=== PATIENT | male | born 1955 | race Caucasian/White ===

== ENCOUNTER 2018-04-29 01:27 | Inpatient (IN) | payer MEDICARE, MEDICAID ==
[2018-04-29] VITALS (14 sets, daily range): BP systolic 104–158; BP diastolic 72–96
[~2018-04-29] VITALS: Ht 167.6 cm; Wt 49.0 kg
[~2018-04-29 01:27] MED LIST: AMLO2.5T45 MT; DORZ10DR9 EACHEYE; LATA2.5D2 EACHEYE; METF500T6 MT; PILO2O EACHEYE; SIMV20TA6 PO
[2018-04-29] MEDS ORDERED: SODIUM CHLORIDE 0.9% 1,000 ML IV ONE (02:02)
[2018-04-29 02:25] LABS: EOSINOPHILS % 0.1 % (0.0-5.0); LYMPHOCYTES % 14.5 % (20.0-50.0); MEAN CORPUSCULAR HEMOGLOBIN 30.8 pg (28.0-32.0)
[2018-04-29 02:32] LABS: CHLORIDE 74 mEq/L (98-107)
[2018-04-29 02:35] LABS: ETHANOL BLOOD < 10 mg/dL
[2018-04-29 02:37] LABS: PROTHROMBIN TIME 10.8 sec (9.4-11.6)
[2018-04-29 02:42] LABS: BASOPHILS % 0.2 % (0.0-2.0); HEMATOCRIT. 37.3 % (42.0-52.0); MEAN PLATELET VOLUME 6.9 fl (7.4-10.4); MONOCYTES % 11.8 % (2.0-8.0); NEUTROPHILS % 73.4 % (40.0-76.0); PLATELET 238 x1000/uL (130-400); RED BLOOD CELL COUNT 4.55 mill/uL (4.7-6.1); RED CELL DISTRIBUTION WIDTH 14.9 % (11.6-14.6)
[2018-04-29] MEDS ORDERED: POTASSIUM CHLORIDE 20MEQ TABLET SR PO SCH (03:00)
[2018-04-29 03:31] LABS: CLARITY URINE CLEAR (CLEAR); COLOR URINE YELLOW (YELLOW); KETONES URINE 1+ (NEGATIVE); LEUKOCYTE ESTERASE URINE NEGATIVE (NEGATIVE); NITRITE URINE NEGATIVE (NEGATIVE); OCCULT BLOOD URINE TRACE (NEGATIVE); PH URINE 6.5 (4.5-8.0); PROTEIN URINE 2+ (NEGATIVE); SPECIFIC GRAVITY URINE 1.014 (1.005-1.030); UROBILINOGEN URINE 0.2 E.U./dL (0.2-1.0)
[2018-04-29] MEDS ORDERED: XALAO LEFTEYE (07:37)
[2018-04-29] MEDS ORDERED: DORZ10DR9 LEFTEYE (07:37)
[2018-04-29] MEDS ORDERED: LISI2.5T47 PO (07:37)
[2018-04-29] MEDS ORDERED: CEPH500T PO (07:37)
[2018-04-29] MEDS ORDERED: ONDA4TAB8 PO (07:37)
[2018-04-29] MEDS ORDERED: DEXTROSE 50% WATER 50ML SYRINGE IV PRN (08:45)
[2018-04-29] MEDS ORDERED: neomycin RIGHTEYE (08:50)
[2018-04-29] MEDS ORDERED: PILOCARPINE HCL 2% OPHTH DROPS 15ML EACHEYE SCH (09:00)
[2018-04-29] MEDS: PILOCARPINE HCL 2% OPHTH DROPS 15ML LEFTEYE SCH ×4 (09:00→22:11)
[2018-04-29] MEDS ORDERED: DORZOLAM/TIMOLOL 2.23/0.68% OPHTH DROPS 10ML EACHEYE SCH (09:00)
[2018-04-29] MEDS ORDERED: AMLODIPINE 5MG TABLET PO SCH (09:00)
[2018-04-29] MEDS: BLOOD SUGAR DIAGNOSTIC STRIP TEST SCH ×4 (09:00→21:00)
[2018-04-29] MEDS ORDERED: DORZOLAM/TIMOLOL 2.23/0.68% OPHTH DROPS 10ML LEFTEYE SCH (09:00)
[2018-04-29] MEDS: SODIUM CHLORIDE 0.9% 1,000 ML IV SCH ×2 (09:08→19:40)
[2018-04-29] MEDS ORDERED: NEO/3.5O RIGHTEYE (09:11)
[2018-04-29] MEDS ORDERED: [UNRECOGNIZED DRUG - OTHER] RIGHTEYE SCH (09:15)
[2018-04-29] MEDS ORDERED: NEO/POLYMYX B SULF/DEXAMETH OPHTH OINT 3.5GM RIGHTEYE SCH (09:15)
[2018-04-29] MEDS ORDERED: NEOMY SULF/BACITRAC ZN/POLY/HC 1 APP TUBE RIGHTEYE SCH (10:00)
[2018-04-29] MEDS: INSULIN LISPRO 100 UNITS/ML SUBCUT SCH ×4 (10:05→21:00)
[2018-04-29] MEDS: ENOXAPARIN 40MG/0.4ML SYR SUBCUT SCH (10:06)
[2018-04-29] MEDS ORDERED: MEDICATION NOT ON FORMULARY EA (Cephalexin Monohydrate (Cephalexin) 500 MG) PO SCH (10:30)
[2018-04-29] MEDS ORDERED: NEO/POLYMYX B SULF/DEXAMETH OPHTH OINT 3.5GM BOTHEYE SCH (10:30)
[2018-04-29] MEDS: DORZOLAM/TIMOLOL 2.23/0.68% OPHTH DROPS 10ML LEFTEYE SCH ×2 (10:43→17:32)
[2018-04-29] MEDS: NEO/POLYMYX B SULF/DEXAMETH OPHTH OINT 3.5GM RIGHTEYE SCH ×2 (10:43→17:32)
[2018-04-29] MEDS: INSULIN GLARGINE UD 100 UNITS/ML SYR SUBCUT SCH (10:45)
[2018-04-29] MEDS: CEPHALEXIN 500MG CAPSULE PO SCH ×2 (10:47→17:32)
[2018-04-29] MEDS ORDERED: ONDANSETRON 4MG ODT PO PRN (13:30)
[2018-04-29] MEDS ORDERED: AMLODIPINE 2.5MG TABLET PO NR (15:45)
[2018-04-29 15:59] LABS: CREATINE KINASE 87 IU/L (39-308)
[2018-04-29 16:02] LABS: CREATINE KINASE MB FRACTION 1.7 ng/mL (0.5-3.6)
[2018-04-29 16:17] LABS: CHLORIDE 90 mEq/L (98-107)
[2018-04-29] MEDS ORDERED: LATANOPROST 0.005% OPHTH DROPS 2.5ML EACHEYE SCH (21:00)
[2018-04-29] MEDS ORDERED: LATANOPROST 0.005% OPHTH DROPS 2.5ML LEFTEYE SCH (21:00)
[2018-04-29] MEDS: POTASSIUM CHLORIDE 20MEQ TABLET SR PO SCH ×2 (22:11→23:37)
[2018-04-29] MEDS: LATANOPROST 0.005% OPHTH DROPS 2.5ML LEFTEYE SCH (22:11)
[2018-04-29 23:43] LABS: CREATINE KINASE 76 IU/L (39-308)
[2018-04-29 23:44] LABS: CREATINE KINASE MB FRACTION 1.5 ng/mL (0.5-3.6)
[2018-04-30] VITALS (10 sets, daily range): BP systolic 112–159; BP diastolic 74–98
[2018-04-30] MEDS: SODIUM CHLORIDE 0.9% 1,000 ML IV SCH ×2 (04:02→14:06)
[2018-04-30] MEDS: BLOOD SUGAR DIAGNOSTIC STRIP TEST SCH ×4 (06:39→21:00)
[2018-04-30 06:42] LABS: CHLORIDE 91 mEq/L (98-107)
[2018-04-30] MEDS ORDERED: POTASSIUM CHLORIDE 20MEQ TABLET SR PO NR (07:45)
[2018-04-30] MEDS: CEPHALEXIN 500MG CAPSULE PO SCH ×2 (08:31→17:39)
[2018-04-30] MEDS: INSULIN LISPRO 100 UNITS/ML SUBCUT SCH ×4 (08:31→22:15)
[2018-04-30] MEDS: AMLODIPINE 2.5MG TABLET PO SCH ×2 (08:32→22:11)
[2018-04-30] MEDS: DORZOLAM/TIMOLOL 2.23/0.68% OPHTH DROPS 10ML LEFTEYE SCH ×2 (08:33→17:39)
[2018-04-30] MEDS: PILOCARPINE HCL 2% OPHTH DROPS 15ML LEFTEYE SCH ×4 (08:33→21:00)
[2018-04-30] MEDS: NEO/POLYMYX B SULF/DEXAMETH OPHTH OINT 3.5GM RIGHTEYE SCH ×2 (08:33→17:39)
[2018-04-30] MEDS: ENOXAPARIN 40MG/0.4ML SYR SUBCUT SCH (08:34)
[2018-04-30 08:56] LABS: BASOPHILS % 0.4 % (0.0-2.0); EOSINOPHILS % 0.1 % (0.0-5.0); LYMPHOCYTES % 17.1 % (20.0-50.0); MEAN CORPUSCULAR HEMOGLOBIN 30.4 pg (28.0-32.0); MEAN CORPUSCULAR VOLUME 83.9 fL (80.0-94.0); MEAN PLATELET VOLUME 6.8 fl (7.4-10.4); MONOCYTES % 12.6 % (2.0-8.0); NEUTROPHILS % 69.8 % (40.0-76.0); PLATELET 215 x1000/uL (130-400); RED BLOOD CELL COUNT 4.29 mill/uL (4.7-6.1); RED CELL DISTRIBUTION WIDTH 15.3 % (11.6-14.6)
[2018-04-30] MEDS ORDERED: AMLODIPINE 2.5MG TABLET PO SCH (09:00)
[2018-04-30] MEDS: POTASSIUM CHLORIDE 20MEQ TABLET SR PO SCH (09:30)
[2018-04-30] MEDS: INSULIN GLARGINE UD 100 UNITS/ML SYR SUBCUT SCH (10:52)
[2018-04-30] MEDS: LATANOPROST 0.005% OPHTH DROPS 2.5ML LEFTEYE SCH (22:11)
[2018-05-01] VITALS (12 sets, daily range): BP systolic 122–178; BP diastolic 61–114
[2018-05-01] MEDS: SODIUM CHLORIDE 0.9% 1,000 ML IV SCH ×2 (00:01→09:50)
[2018-05-01 06:43] LABS: CHLORIDE 87 mEq/L (98-107)
[2018-05-01] MEDS: BLOOD SUGAR DIAGNOSTIC STRIP TEST SCH ×4 (07:16→21:00)
[2018-05-01 07:34] LABS: PHOSPHORUS 2.4 mg/dL (2.5-4.9)
[2018-05-01] MEDS ORDERED: KCL 20MEQ/100ML PREMIX 100 ML IV NR (08:00)
[2018-05-01 08:06] LABS: BASOPHILS % 0.2 % (0.0-2.0); EOSINOPHILS % 0.6 % (0.0-5.0); HEMATOCRIT. 37.2 % (42.0-52.0); HEMOGLOBIN. 13.5 g/dL (14.0-18.0); LYMPHOCYTES % 25.7 % (20.0-50.0); MEAN CORPUSCULAR HEMOGLOBIN 30.4 pg (28.0-32.0); MEAN CORPUSCULAR VOLUME 83.7 fL (80.0-94.0); MEAN PLATELET VOLUME 6.7 fl (7.4-10.4); MONOCYTES % 10.5 % (2.0-8.0); PLATELET 217 x1000/uL (130-400); RED BLOOD CELL COUNT 4.45 mill/uL (4.7-6.1)
[2018-05-01] MEDS: ENOXAPARIN 40MG/0.4ML SYR SUBCUT SCH (09:00)
[2018-05-01] MEDS: PILOCARPINE HCL 2% OPHTH DROPS 15ML LEFTEYE SCH ×4 (09:00→21:30)
[2018-05-01] MEDS: AMLODIPINE 2.5MG TABLET PO SCH ×2 (09:21→21:30)
[2018-05-01] MEDS: POTASSIUM CHLORIDE 20MEQ TABLET SR PO SCH (09:21)
[2018-05-01] MEDS: CEPHALEXIN 500MG CAPSULE PO SCH ×2 (09:21→18:38)
[2018-05-01] MEDS: INSULIN LISPRO 100 UNITS/ML SUBCUT SCH ×4 (09:24→21:32)
[2018-05-01] MEDS: NEO/POLYMYX B SULF/DEXAMETH OPHTH OINT 3.5GM RIGHTEYE SCH ×2 (09:26→18:40)
[2018-05-01] MEDS: DORZOLAM/TIMOLOL 2.23/0.68% OPHTH DROPS 10ML LEFTEYE SCH ×2 (09:26→18:39)
[2018-05-01] MEDS: INSULIN GLARGINE UD 100 UNITS/ML SYR SUBCUT SCH (09:28)
[2018-05-01] MEDS: FOLIC ACID/VITAMIN B COMP W-C TABLET PO SCH (11:15)
[2018-05-01] MEDS: TAMSULOSIN HCL 0.4MG SR CAPSULE PO SCH (11:16)
[2018-05-01] MEDS ORDERED: MAGNESIUM 2 G PREMIX 50 ML IV NR (11:30)
[2018-05-01] MEDS: DEXAMETHASONE 4MG/ML 1ML VIAL IV SCH ×3 (12:47→23:47)
[2018-05-01] MEDS: MAGNESIUM OXIDE 400MG TABLET PO SCH (18:38)
[2018-05-01] MEDS: LATANOPROST 0.005% OPHTH DROPS 2.5ML LEFTEYE SCH (21:30)
[2018-05-02] VITALS (15 sets, daily range): BP systolic 62–169; BP diastolic 46–105
[2018-05-02] MEDS: DEXAMETHASONE 4MG/ML 1ML VIAL IV SCH ×4 (05:37→23:54)
[2018-05-02 06:49] LABS: CHLORIDE 89 mEq/L (98-107)
[2018-05-02] MEDS: BLOOD SUGAR DIAGNOSTIC STRIP TEST SCH ×4 (06:50→21:00)
[2018-05-02] MEDS: INSULIN LISPRO 100 UNITS/ML SUBCUT SCH ×4 (07:39→21:25)
[2018-05-02 08:07] LABS: BASOPHILS % 0.1 % (0.0-2.0); EOSINOPHILS % 0.1 % (0.0-5.0); HEMOGLOBIN. 12.7 g/dL (14.0-18.0); LYMPHOCYTES % 15.4 % (20.0-50.0); MEAN CORPUSCULAR HEMOGLOBIN 30.5 pg (28.0-32.0); MEAN CORPUSCULAR VOLUME 83.9 fL (80.0-94.0); MEAN PLATELET VOLUME 6.7 fl (7.4-10.4); MONOCYTES % 4.1 % (2.0-8.0); NEUTROPHILS % 80.3 % (40.0-76.0); PLATELET 208 x1000/uL (130-400); RED BLOOD CELL COUNT 4.17 mill/uL (4.7-6.1); RED CELL DISTRIBUTION WIDTH 14.8 % (11.6-14.6)
[2018-05-02] MEDS: DORZOLAM/TIMOLOL 2.23/0.68% OPHTH DROPS 10ML LEFTEYE SCH ×2 (08:26→17:32)
[2018-05-02] MEDS: NEO/POLYMYX B SULF/DEXAMETH OPHTH OINT 3.5GM RIGHTEYE SCH ×2 (08:26→17:30)
[2018-05-02] MEDS: POTASSIUM CHLORIDE 20MEQ TABLET SR PO SCH (08:27)
[2018-05-02] MEDS: PILOCARPINE HCL 2% OPHTH DROPS 15ML LEFTEYE SCH ×4 (08:27→21:24)
[2018-05-02] MEDS: AMLODIPINE 2.5MG TABLET PO SCH ×2 (08:27→21:23)
[2018-05-02] MEDS: FOLIC ACID/VITAMIN B COMP W-C TABLET PO SCH (08:27)
[2018-05-02] MEDS: TAMSULOSIN HCL 0.4MG SR CAPSULE PO SCH (08:28)
[2018-05-02] MEDS: CEPHALEXIN 500MG CAPSULE PO SCH ×2 (08:28→17:29)
[2018-05-02] MEDS: MAGNESIUM OXIDE 400MG TABLET PO SCH ×2 (08:33→17:29)
[2018-05-02] MEDS: INSULIN GLARGINE UD 100 UNITS/ML SYR SUBCUT SCH (08:55)
[2018-05-02] MEDS ORDERED: CLONIDINE 0.2MG TABLET PO PRN (11:45)
[2018-05-02] MEDS ORDERED: LISINOPRIL 10MG TABLET PO SCH (12:00)
[2018-05-02] MEDS ORDERED: POTASSIUM CHLORIDE 20MEQ TABLET SR PO NR (12:00)
[2018-05-02] MEDS: CLONIDINE 0.1MG TABLET PO PRN (12:05)
[2018-05-02] MEDS: LATANOPROST 0.005% OPHTH DROPS 2.5ML LEFTEYE SCH (21:23)
[2018-05-02] MEDS: LISINOPRIL 2.5MG TABLET PO SCH (21:23)
[2018-05-03] VITALS (22 sets, daily range): BP systolic 71–170; BP diastolic 47–101
[2018-05-03] MEDS: DEXAMETHASONE 4MG/ML 1ML VIAL IV SCH ×4 (05:23→23:26)
[2018-05-03] MEDS: BLOOD SUGAR DIAGNOSTIC STRIP TEST SCH ×4 (06:30→21:34)
[2018-05-03 06:37] LABS: CHLORIDE 89 mEq/L (98-107)
[2018-05-03 07:02] LABS: CREATINE KINASE MB FRACTION 1.6 ng/mL (0.5-3.6)
[2018-05-03] MEDS: INSULIN LISPRO 100 UNITS/ML SUBCUT SCH ×4 (07:20→21:33)
[2018-05-03 08:54] LABS: HEMATOCRIT. 34.3 % (42.0-52.0); HEMOGLOBIN. 12.5 g/dL (14.0-18.0); LYMPHOCYTES % 9.3 % (20.0-50.0); MEAN CORPUSCULAR HEMOGLOBIN 30.6 pg (28.0-32.0); MEAN CORPUSCULAR VOLUME 84.2 fL (80.0-94.0); MEAN PLATELET VOLUME 6.7 fl (7.4-10.4); MONOCYTES % 4.8 % (2.0-8.0); NEUTROPHILS % 85.9 % (40.0-76.0); PLATELET 236 x1000/uL (130-400); RED BLOOD CELL COUNT 4.08 mill/uL (4.7-6.1)
[2018-05-03] MEDS: AMLODIPINE 2.5MG TABLET PO SCH ×2 (09:00→21:34)
[2018-05-03] MEDS: POTASSIUM CHLORIDE 20MEQ TABLET SR PO SCH ×2 (09:00→13:07)
[2018-05-03] MEDS: CEPHALEXIN 500MG CAPSULE PO SCH ×2 (09:00→17:39)
[2018-05-03] MEDS: TAMSULOSIN HCL 0.4MG SR CAPSULE PO SCH ×2 (09:00→13:05)
[2018-05-03] MEDS: FOLIC ACID/VITAMIN B COMP W-C TABLET PO SCH ×2 (09:00→13:05)
[2018-05-03] MEDS: LISINOPRIL 2.5MG TABLET PO SCH ×2 (09:00→21:33)
[2018-05-03] MEDS: MAGNESIUM OXIDE 400MG TABLET PO SCH ×2 (09:00→17:40)
[2018-05-03] MEDS: NEO/POLYMYX B SULF/DEXAMETH OPHTH OINT 3.5GM RIGHTEYE SCH ×2 (09:46→17:44)
[2018-05-03] MEDS: DORZOLAM/TIMOLOL 2.23/0.68% OPHTH DROPS 10ML LEFTEYE SCH ×2 (09:46→17:44)
[2018-05-03] MEDS: PILOCARPINE HCL 2% OPHTH DROPS 15ML LEFTEYE SCH ×4 (09:46→21:33)
[2018-05-03] MEDS ORDERED: THROMBIN (BOVINE) 5000 UNITS/VIAL TOP ONE ×2 (09:53→09:54)
[2018-05-03] MEDS ORDERED: NORMAL SALINE 0.9% 10 ML SYR ONE (09:54)
[2018-05-03] MEDS ORDERED: LIDOCAINE HCL/EPINEPHRINE 1%-EPI 1:100,000 20 ML VIAL ONE (09:54)
[2018-05-03] MEDS ORDERED: BACITRACIN 50,000 UNITS/VIAL ONE (09:55)
[2018-05-03] MEDS ORDERED: GELATIN SPONGE,COMPRESSED SZ 100 ONE (09:55)
[2018-05-03] MEDS: INSULIN GLARGINE UD 100 UNITS/ML SYR SUBCUT SCH ×2 (10:00→13:11)
[2018-05-03] MEDS: MIDODRINE HCL 5MG TABLET PO SCH ×2 (13:05→17:47)
[2018-05-03] MEDS: LATANOPROST 0.005% OPHTH DROPS 2.5ML LEFTEYE SCH (21:33)
[2018-05-03] MEDS: SODIUM CHLORIDE 0.9% 1,000 ML IV SCH (22:44)
[2018-05-03] MEDS: CLONIDINE 0.1MG TABLET PO PRN (23:26)
[2018-05-04] VITALS (35 sets, daily range): BP systolic 0–175; BP diastolic 0–109
[2018-05-04] MEDS: DEXAMETHASONE 4MG/ML 1ML VIAL IV SCH ×4 (05:33→23:34)
[2018-05-04] MEDS: BLOOD SUGAR DIAGNOSTIC STRIP TEST SCH ×4 (06:28→20:34)
[2018-05-04 07:01] LABS: CHLORIDE 93 mEq/L (98-107)
[2018-05-04] MEDS ORDERED: BACITRACIN ZINC 15GM TUBE TOP ONE (07:09)
[2018-05-04] MEDS ORDERED: NORMAL SALINE 0.9% 10 ML SYR ONE (07:09)
[2018-05-04] MEDS ORDERED: BACITRACIN 50,000 UNITS/VIAL ONE (07:10)
[2018-05-04] MEDS ORDERED: LIDOCAINE HCL/EPINEPHRINE 1%-EPI 1:100,000 20 ML VIAL ONE (07:10)
[2018-05-04] MEDS ORDERED: THROMBIN (BOVINE) 5000 UNITS/VIAL TOP ONE ×2 (07:11→07:12)
[2018-05-04] MEDS ORDERED: GELATIN SPONGE,COMPRESSED SZ 100 ONE (07:11)
[2018-05-04] MEDS: INSULIN LISPRO 100 UNITS/ML SUBCUT SCH ×4 (07:20→20:34)
[2018-05-04 08:02] LABS: BASOPHILS % 0.1 % (0.0-2.0); HEMOGLOBIN. 12.3 g/dL (14.0-18.0); LYMPHOCYTES % 10.8 % (20.0-50.0); MEAN CORPUSCULAR HEMOGLOBIN 30.4 pg (28.0-32.0); MEAN CORPUSCULAR VOLUME 83.9 fL (80.0-94.0); MEAN PLATELET VOLUME 6.5 fl (7.4-10.4); MONOCYTES % 5.4 % (2.0-8.0); NEUTROPHILS % 83.7 % (40.0-76.0); PLATELET 228 x1000/uL (130-400); RED BLOOD CELL COUNT 4.06 mill/uL (4.7-6.1); RED CELL DISTRIBUTION WIDTH 14.7 % (11.6-14.6)
[2018-05-04] MEDS: LISINOPRIL 2.5MG TABLET PO SCH ×2 (09:00→21:56)
[2018-05-04] MEDS: TAMSULOSIN HCL 0.4MG SR CAPSULE PO SCH (09:00)
[2018-05-04] MEDS: AMLODIPINE 2.5MG TABLET PO SCH ×2 (09:00→20:34)
[2018-05-04] MEDS: FOLIC ACID/VITAMIN B COMP W-C TABLET PO SCH (09:00)
[2018-05-04] MEDS: DORZOLAM/TIMOLOL 2.23/0.68% OPHTH DROPS 10ML LEFTEYE SCH ×2 (09:00→17:18)
[2018-05-04] MEDS: NEO/POLYMYX B SULF/DEXAMETH OPHTH OINT 3.5GM RIGHTEYE SCH ×2 (09:00→17:18)
[2018-05-04] MEDS: POTASSIUM CHLORIDE 20MEQ TABLET SR PO SCH (09:00)
[2018-05-04] MEDS: CEPHALEXIN 500MG CAPSULE PO SCH ×2 (09:00→17:12)
[2018-05-04] MEDS: MAGNESIUM OXIDE 400MG TABLET PO SCH ×2 (09:00→17:12)
[2018-05-04] MEDS: PILOCARPINE HCL 2% OPHTH DROPS 15ML LEFTEYE SCH ×4 (09:00→20:41)
[2018-05-04] MEDS ORDERED: ROCURONIUM BROMIDE 10MG/ML VIAL 5ML IV ONE (09:45)
[2018-05-04] MEDS ORDERED: FENTANYL CITRATE/PF 50MCG/ML 5ML VIAL ONE (09:45)
[2018-05-04] MEDS ORDERED: PROPOFOL 200MG/20ML VIAL IV ONE (09:45)
[2018-05-04] MEDS ORDERED: MIDAZOLAM HCL 2 MG/2 ML VIAL ONE (09:45)
[2018-05-04] MEDS ORDERED: HYDROMORPHONE HCL/PF 2MG/ML (OR) ONE (09:45)
[2018-05-04] MEDS ORDERED: SODIUM CHLORIDE 0.9% 10ML VIAL ONE (09:48)
[2018-05-04] MEDS: INSULIN GLARGINE UD 100 UNITS/ML SYR SUBCUT SCH (10:00)
[2018-05-04] MEDS ORDERED: SUCCINYLCHOLINE CHLORIDE 200MG/10ML VIAL IV ONE (10:17)
[2018-05-04] MEDS ORDERED: LIDOCAINE HCL/PF 1% 10 MG/ML 5ML VIAL ONE (10:17)
[2018-05-04] MEDS ORDERED: NICARDIPINE 100 MG in SODIUM CHLORIDE 0.9% 60 ML IV PRN (10:30)
[2018-05-04] MEDS ORDERED: NEOSTIGMINE METHYLSULFATE 1MG/ML 10 ML VIAL ONE (11:44)
[2018-05-04] MEDS ORDERED: GLYCOPYRROLATE 0.2 MG/ML 2ML VIAL ONE (11:44)
[2018-05-04] MEDS ORDERED: NALOXONE HCL 0.4 MG/ML 1ML VIAL ONE ×3 (11:53→12:06)
[2018-05-04] MEDS ORDERED: CEFAZOLIN SODIUM 1000MG/VIAL IV SCH (12:00)
[2018-05-04] MEDS ORDERED: BISACODYL 5MG TABLET PO PRN (12:45)
[2018-05-04] MEDS ORDERED: IPRATROPIUM/ALBUTEROL 0.5-3(2.5)MG/3ML NEB HHN PRN (12:45)
[2018-05-04] MEDS: DOCUSATE SODIUM 250MG CAPSULE PO SCH (13:00)
[2018-05-04] MEDS: SODIUM CHLORIDE 0.9% 1,000 ML IV SCH ×2 (13:05→23:34)
[2018-05-04] MEDS: CEFAZOLIN 1000MG PREMIX 50 ML IV SCH ×2 (14:05→21:57)
[2018-05-04] MEDS ORDERED: MORPHINE SULFATE 4 MG/ML CPJ (NOT FOR IM USE) IV PRN (18:30)
[2018-05-04] MEDS: LATANOPROST 0.005% OPHTH DROPS 2.5ML LEFTEYE SCH (20:42)
[2018-05-05] VITALS (57 sets, daily range): BP systolic 108–167; BP diastolic 56–94
[2018-05-05] MEDS: BLOOD SUGAR DIAGNOSTIC STRIP TEST SCH ×4 (05:44→21:13)
[2018-05-05] MEDS: DEXAMETHASONE 4MG/ML 1ML VIAL IV SCH ×3 (05:46→17:00)
[2018-05-05] MEDS: CEFAZOLIN 1000MG PREMIX 50 ML IV SCH (05:46)
[2018-05-05] MEDS: INSULIN LISPRO 100 UNITS/ML SUBCUT SCH ×4 (06:27→21:19)
[2018-05-05 06:53] LABS: CHLORIDE 93 mEq/L (98-107)
[2018-05-05 08:52] LABS: HEMOGLOBIN. 12.5 g/dL (14.0-18.0); MEAN CORPUSCULAR HEMOGLOBIN 30.7 pg (28.0-32.0); MEAN CORPUSCULAR VOLUME 85.6 fL (80.0-94.0); MEAN PLATELET VOLUME 6.6 fl (7.4-10.4); PLATELET 198 x1000/uL (130-400); RED BLOOD CELL COUNT 4.08 mill/uL (4.7-6.1); RED CELL DISTRIBUTION WIDTH 14.5 % (11.6-14.6)
[2018-05-05 09:07] LABS: PLATELET ESTIMATE NORMAL
[2018-05-05] MEDS: LISINOPRIL 2.5MG TABLET PO SCH ×2 (09:39→21:12)
[2018-05-05] MEDS: CEPHALEXIN 500MG CAPSULE PO SCH ×2 (09:39→16:54)
[2018-05-05] MEDS: TAMSULOSIN HCL 0.4MG SR CAPSULE PO SCH (09:40)
[2018-05-05] MEDS: MAGNESIUM OXIDE 400MG TABLET PO SCH ×2 (09:40→16:54)
[2018-05-05] MEDS: POTASSIUM CHLORIDE 20MEQ TABLET SR PO SCH (09:40)
[2018-05-05] MEDS: DOCUSATE SODIUM 250MG CAPSULE PO SCH (09:41)
[2018-05-05] MEDS: AMLODIPINE 2.5MG TABLET PO SCH ×2 (09:41→21:13)
[2018-05-05] MEDS: PILOCARPINE HCL 2% OPHTH DROPS 15ML LEFTEYE SCH ×4 (09:41→21:11)
[2018-05-05] MEDS: DORZOLAM/TIMOLOL 2.23/0.68% OPHTH DROPS 10ML LEFTEYE SCH ×2 (09:41→16:54)
[2018-05-05] MEDS: NEO/POLYMYX B SULF/DEXAMETH OPHTH OINT 3.5GM RIGHTEYE SCH ×2 (09:41→16:54)
[2018-05-05] MEDS: FOLIC ACID/VITAMIN B COMP W-C TABLET PO SCH (09:43)
[2018-05-05] MEDS: INSULIN GLARGINE UD 100 UNITS/ML SYR SUBCUT SCH ×2 (11:37→21:52)
[2018-05-05] MEDS: SODIUM CHLORIDE 0.9% 1,000 ML IV SCH ×2 (11:46→17:12)
[2018-05-05] MEDS: KCL 20MEQ/100ML PREMIX 100 ML IV NR ×2 (17:10→17:13)
[2018-05-05] MEDS: LATANOPROST 0.005% OPHTH DROPS 2.5ML LEFTEYE SCH (21:11)
[2018-05-06] VITALS (46 sets, daily range): BP systolic 101–178; BP diastolic 63–116
[2018-05-06] MEDS: SODIUM CHLORIDE 0.9% 1,000 ML IV SCH (04:39)
[2018-05-06 05:58] LABS: HEMATOCRIT. 33.4 % (42.0-52.0); HEMOGLOBIN. 11.8 g/dL (14.0-18.0); MEAN CORPUSCULAR HEMOGLOBIN 30.7 pg (28.0-32.0); MEAN CORPUSCULAR VOLUME 86.9 fL (80.0-94.0); MEAN PLATELET VOLUME 6.5 fl (7.4-10.4); PLATELET 181 x1000/uL (130-400); RED BLOOD CELL COUNT 3.84 mill/uL (4.7-6.1); RED CELL DISTRIBUTION WIDTH 14.7 % (11.6-14.6)
[2018-05-06 06:22] LABS: CHLORIDE 93 mEq/L (98-107)
[2018-05-06] MEDS: DEXAMETHASONE 4MG/ML 1ML VIAL IV SCH ×4 (06:32→17:34)
[2018-05-06] MEDS: BLOOD SUGAR DIAGNOSTIC STRIP TEST SCH ×4 (06:32→20:50)
[2018-05-06] MEDS: INSULIN LISPRO 100 UNITS/ML SUBCUT SCH ×4 (06:33→20:49)
[2018-05-06 07:48] LABS: PLATELET ESTIMATE NORMAL
[2018-05-06] MEDS: DORZOLAM/TIMOLOL 2.23/0.68% OPHTH DROPS 10ML LEFTEYE SCH ×2 (08:00→17:28)
[2018-05-06] MEDS: POTASSIUM CHLORIDE 20MEQ TABLET SR PO SCH (08:01)
[2018-05-06] MEDS: PILOCARPINE HCL 2% OPHTH DROPS 15ML LEFTEYE SCH ×4 (08:01→20:24)
[2018-05-06] MEDS: AMLODIPINE 2.5MG TABLET PO SCH ×2 (08:02→20:25)
[2018-05-06] MEDS: LISINOPRIL 2.5MG TABLET PO SCH ×2 (08:02→20:25)
[2018-05-06] MEDS: FOLIC ACID/VITAMIN B COMP W-C TABLET PO SCH (08:04)
[2018-05-06] MEDS: MAGNESIUM OXIDE 400MG TABLET PO SCH ×2 (08:04→17:36)
[2018-05-06] MEDS: DOCUSATE SODIUM 250MG CAPSULE PO SCH (08:05)
[2018-05-06] MEDS: CEPHALEXIN 500MG CAPSULE PO SCH (08:06)
[2018-05-06] MEDS: NEO/POLYMYX B SULF/DEXAMETH OPHTH OINT 3.5GM RIGHTEYE SCH (08:08)
[2018-05-06] MEDS: TAMSULOSIN HCL 0.4MG SR CAPSULE PO SCH (08:12)
[2018-05-06] MEDS: LATANOPROST 0.005% OPHTH DROPS 2.5ML LEFTEYE SCH (20:25)
[2018-05-06] MEDS: INSULIN GLARGINE UD 100 UNITS/ML SYR SUBCUT SCH (20:50)
[2018-05-06] MEDS: CLONIDINE 0.1MG TABLET PO PRN (21:52)
[2018-05-07] VITALS: BP 139/88
[2018-05-07] MEDS: DEXAMETHASONE 4MG/ML 1ML VIAL IV SCH ×4 (03:58→18:00)
[2018-05-07 04:00] VITALS: BP 146/83
[2018-05-07] MEDS: BLOOD SUGAR DIAGNOSTIC STRIP TEST SCH ×4 (07:07→21:00)
[2018-05-07 07:48] LABS: BASOPHILS % 0.1 % (0.0-2.0); HEMATOCRIT. 33.5 % (42.0-52.0); LYMPHOCYTES % 9.9 % (20.0-50.0); MEAN CORPUSCULAR HEMOGLOBIN 30.9 pg (28.0-32.0); MEAN CORPUSCULAR VOLUME 86.2 fL (80.0-94.0); MEAN PLATELET VOLUME 6.4 fl (7.4-10.4); MONOCYTES % 8.7 % (2.0-8.0); NEUTROPHILS % 81.3 % (40.0-76.0); PLATELET 181 x1000/uL (130-400); RED BLOOD CELL COUNT 3.88 mill/uL (4.7-6.1); RED CELL DISTRIBUTION WIDTH 14.8 % (11.6-14.6)
[2018-05-07] MEDS: INSULIN LISPRO 100 UNITS/ML SUBCUT SCH ×4 (07:50→22:40)
[2018-05-07 08:00] VITALS: BP 132/57
[2018-05-07 08:14] LABS: CHLORIDE 95 mEq/L (98-107)
[2018-05-07] MEDS: DOCUSATE SODIUM 250MG CAPSULE PO SCH (09:08)
[2018-05-07] MEDS: POTASSIUM CHLORIDE 20MEQ TABLET SR PO SCH (09:09)
[2018-05-07] MEDS: MAGNESIUM OXIDE 400MG TABLET PO SCH ×2 (09:09→17:52)
[2018-05-07] MEDS: TAMSULOSIN HCL 0.4MG SR CAPSULE PO SCH (09:09)
[2018-05-07] MEDS: FOLIC ACID/VITAMIN B COMP W-C TABLET PO SCH (09:09)
[2018-05-07] MEDS: LISINOPRIL 2.5MG TABLET PO SCH ×2 (09:09→22:29)
[2018-05-07] MEDS: AMLODIPINE 2.5MG TABLET PO SCH ×2 (09:10→22:29)
[2018-05-07] MEDS: PILOCARPINE HCL 2% OPHTH DROPS 15ML LEFTEYE SCH ×4 (09:10→21:00)
[2018-05-07] MEDS: DORZOLAM/TIMOLOL 2.23/0.68% OPHTH DROPS 10ML LEFTEYE SCH ×2 (09:10→17:53)
[2018-05-07] MEDS ORDERED: POTASSIUM CHLORIDE 20MEQ/PACKET PO NR (10:00)
[2018-05-07 12:00] VITALS: BP 136/75
[2018-05-07 16:00] VITALS: BP 127/71
[2018-05-07 20:00] VITALS: BP 144/82
[2018-05-07] MEDS: LATANOPROST 0.005% OPHTH DROPS 2.5ML LEFTEYE SCH (21:00)
[2018-05-07] MEDS: INSULIN GLARGINE UD 100 UNITS/ML SYR SUBCUT SCH (22:33)
[2018-05-08] VITALS: BP 170/91
[2018-05-08] MEDS: DEXAMETHASONE 4MG/ML 1ML VIAL IV SCH ×4 (01:13→17:33)
[2018-05-08 04:00] VITALS: BP 158/92
[2018-05-08] MEDS: BLOOD SUGAR DIAGNOSTIC STRIP TEST SCH ×4 (07:38→21:00)
[2018-05-08] MEDS: INSULIN LISPRO 100 UNITS/ML SUBCUT SCH ×4 (07:50→22:41)
[2018-05-08 08:00] VITALS: BP 143/88
[2018-05-08 08:36] LABS: BASOPHILS % 0.1 % (0.0-2.0); HEMATOCRIT. 34.6 % (42.0-52.0); HEMOGLOBIN. 12.4 g/dL (14.0-18.0); LYMPHOCYTES % 8.9 % (20.0-50.0); MEAN CORPUSCULAR HEMOGLOBIN 30.7 pg (28.0-32.0); MEAN CORPUSCULAR VOLUME 85.9 fL (80.0-94.0); MEAN PLATELET VOLUME 6.8 fl (7.4-10.4); MONOCYTES % 8.8 % (2.0-8.0); NEUTROPHILS % 82.2 % (40.0-76.0); PLATELET 181 x1000/uL (130-400); RED BLOOD CELL COUNT 4.02 mill/uL (4.7-6.1); RED CELL DISTRIBUTION WIDTH 14.4 % (11.6-14.6)
[2018-05-08] MEDS: DORZOLAM/TIMOLOL 2.23/0.68% OPHTH DROPS 10ML LEFTEYE SCH ×2 (09:12→17:24)
[2018-05-08] MEDS: POTASSIUM CHLORIDE 20MEQ TABLET SR PO SCH (09:12)
[2018-05-08] MEDS: DOCUSATE SODIUM 250MG CAPSULE PO SCH (09:13)
[2018-05-08] MEDS: MAGNESIUM OXIDE 400MG TABLET PO SCH ×2 (09:14→17:21)
[2018-05-08] MEDS: TAMSULOSIN HCL 0.4MG SR CAPSULE PO SCH (09:14)
[2018-05-08] MEDS: FOLIC ACID/VITAMIN B COMP W-C TABLET PO SCH (09:14)
[2018-05-08] MEDS: LISINOPRIL 2.5MG TABLET PO SCH ×2 (09:14→21:00)
[2018-05-08] MEDS: AMLODIPINE 2.5MG TABLET PO SCH ×2 (09:14→21:00)
[2018-05-08] MEDS: PILOCARPINE HCL 2% OPHTH DROPS 15ML LEFTEYE SCH ×4 (09:36→22:40)
[2018-05-08 11:47] LABS: CHLORIDE 94 mEq/L (98-107)
[2018-05-08 12:00] VITALS: BP 122/87
[2018-05-08 20:00] VITALS: BP 122/71
[2018-05-08] MEDS: INSULIN GLARGINE UD 100 UNITS/ML SYR SUBCUT SCH (22:42)
[2018-05-08] MEDS: LATANOPROST 0.005% OPHTH DROPS 2.5ML LEFTEYE SCH (22:43)
[2018-05-09] VITALS: BP 146/82
[2018-05-09] MEDS: DEXAMETHASONE 4MG/ML 1ML VIAL IV SCH ×4 (00:20→17:31)
[2018-05-09 04:00] VITALS: BP 164/98
[2018-05-09 06:56] LABS: CHLORIDE 92 mEq/L (98-107)
[2018-05-09] MEDS: BLOOD SUGAR DIAGNOSTIC STRIP TEST SCH ×4 (07:56→21:19)
[2018-05-09 08:00] VITALS: BP 163/104
[2018-05-09] MEDS: DORZOLAM/TIMOLOL 2.23/0.68% OPHTH DROPS 10ML LEFTEYE SCH ×2 (08:23→16:40)
[2018-05-09] MEDS: PILOCARPINE HCL 2% OPHTH DROPS 15ML LEFTEYE SCH ×4 (08:23→21:15)
[2018-05-09] MEDS: FOLIC ACID/VITAMIN B COMP W-C TABLET PO SCH (08:24)
[2018-05-09] MEDS: DOCUSATE SODIUM 250MG CAPSULE PO SCH (08:24)
[2018-05-09] MEDS: MAGNESIUM OXIDE 400MG TABLET PO SCH ×2 (08:24→16:40)
[2018-05-09] MEDS: POTASSIUM CHLORIDE 20MEQ TABLET SR PO SCH (08:24)
[2018-05-09] MEDS: LISINOPRIL 2.5MG TABLET PO SCH (08:25)
[2018-05-09] MEDS: AMLODIPINE 2.5MG TABLET PO SCH ×2 (08:25→21:15)
[2018-05-09] MEDS: TAMSULOSIN HCL 0.4MG SR CAPSULE PO SCH (08:25)
[2018-05-09] MEDS: INSULIN LISPRO 100 UNITS/ML SUBCUT SCH ×4 (08:26→21:41)
[2018-05-09 08:57] LABS: BASOPHILS % 0.2 % (0.0-2.0); EOSINOPHILS % 0.1 % (0.0-5.0); HEMATOCRIT. 34.6 % (42.0-52.0); HEMOGLOBIN. 12.2 g/dL (14.0-18.0); LYMPHOCYTES % 8.2 % (20.0-50.0); MEAN CORPUSCULAR HEMOGLOBIN 30.5 pg (28.0-32.0); MEAN CORPUSCULAR VOLUME 86.3 fL (80.0-94.0); MONOCYTES % 6.8 % (2.0-8.0); NEUTROPHILS % 84.7 % (40.0-76.0); PLATELET 173 x1000/uL (130-400); RED BLOOD CELL COUNT 4.01 mill/uL (4.7-6.1); RED CELL DISTRIBUTION WIDTH 14.4 % (11.6-14.6)
[2018-05-09 12:00] VITALS: BP 146/87
[2018-05-09] MEDS: LOSARTAN POTASSIUM 25 MG TABLET PO SCH ×2 (14:49→21:16)
[2018-05-09 16:00] VITALS: BP 149/89
[2018-05-09 20:00] VITALS: BP 147/85
[2018-05-09] MEDS: LATANOPROST 0.005% OPHTH DROPS 2.5ML LEFTEYE SCH (21:15)
[2018-05-09] MEDS: INSULIN GLARGINE UD 100 UNITS/ML SYR SUBCUT SCH (21:40)
[2018-05-10] VITALS (7 sets, daily range): BP systolic 114–162; BP diastolic 67–99
[2018-05-10] MEDS: DEXAMETHASONE 4MG/ML 1ML VIAL IV SCH ×4 (00:16→19:06)
[2018-05-10] MEDS: BLOOD SUGAR DIAGNOSTIC STRIP TEST SCH ×4 (06:03→21:09)
[2018-05-10] MEDS: INSULIN LISPRO 100 UNITS/ML SUBCUT SCH ×4 (06:33→21:44)
[2018-05-10 07:14] LABS: CHLORIDE 95 mEq/L (98-107)
[2018-05-10 08:34] LABS: BASOPHILS % 0.2 % (0.0-2.0); HEMATOCRIT. 36.4 % (42.0-52.0); HEMOGLOBIN. 12.9 g/dL (14.0-18.0); LYMPHOCYTES % 10.8 % (20.0-50.0); MEAN CORPUSCULAR HEMOGLOBIN 30.6 pg (28.0-32.0); MEAN CORPUSCULAR VOLUME 86.1 fL (80.0-94.0); MEAN PLATELET VOLUME 6.9 fl (7.4-10.4); PLATELET 183 x1000/uL (130-400); RED BLOOD CELL COUNT 4.22 mill/uL (4.7-6.1); RED CELL DISTRIBUTION WIDTH 14.7 % (11.6-14.6)
[2018-05-10] MEDS: POTASSIUM CHLORIDE 20MEQ TABLET SR PO SCH (09:04)
[2018-05-10] MEDS: AMLODIPINE 2.5MG TABLET PO SCH ×2 (09:05→21:00)
[2018-05-10] MEDS: MAGNESIUM OXIDE 400MG TABLET PO SCH ×2 (09:05→17:34)
[2018-05-10] MEDS: DOCUSATE SODIUM 250MG CAPSULE PO SCH (09:05)
[2018-05-10] MEDS: TAMSULOSIN HCL 0.4MG SR CAPSULE PO SCH (09:05)
[2018-05-10] MEDS: FOLIC ACID/VITAMIN B COMP W-C TABLET PO SCH (09:06)
[2018-05-10] MEDS: LOSARTAN POTASSIUM 25 MG TABLET PO SCH (09:06)
[2018-05-10] MEDS: PILOCARPINE HCL 2% OPHTH DROPS 15ML LEFTEYE SCH ×4 (09:09→21:10)
[2018-05-10] MEDS: DORZOLAM/TIMOLOL 2.23/0.68% OPHTH DROPS 10ML LEFTEYE SCH ×2 (09:10→17:35)
[2018-05-10 13:38] LABS: HEPATITIS B SURFACE ANTIGEN NEGATIVE
[2018-05-10 14:06] LABS: HEPATITIS B CORE AB IGM NEGATIVE
[2018-05-10 14:07] LABS: HEPATITIS A AB IGM NEGATIVE (NEGATIVE)
[2018-05-10] MEDS ORDERED: HYDROCODONE/ACETAMINOPHEN 5/325MG TABLET PO PRN (14:45)
[2018-05-10] MEDS ORDERED: ACETAMINOPHEN 650MG/20.3ML UDC PO PRN (14:45)
[2018-05-10] MEDS ORDERED: ACETAMINOPHEN 325MG TABLET PO NR (14:45)
[2018-05-10 16:33] LABS: AMMONIA < 10 uMol/L (<32)
[2018-05-10] MEDS: CLONIDINE 0.1MG TABLET PO SCH ×2 (19:07→21:09)
[2018-05-10] MEDS: LOSARTAN POTASSIUM 50 MG TABLET PO SCH (21:00)
[2018-05-10] MEDS: LATANOPROST 0.005% OPHTH DROPS 2.5ML LEFTEYE SCH (21:10)
[2018-05-10] MEDS: INSULIN GLARGINE UD 100 UNITS/ML SYR SUBCUT SCH (21:17)
[2018-05-11] VITALS (8 sets, daily range): BP systolic 113–173; BP diastolic 72–83
[2018-05-11] MEDS: DEXAMETHASONE 4MG/ML 1ML VIAL IV SCH ×4 (00:17→17:16)
[2018-05-11] MEDS: CLONIDINE 0.1MG TABLET PO PRN (04:43)
[2018-05-11] MEDS: INSULIN LISPRO 100 UNITS/ML SUBCUT SCH ×4 (06:33→22:49)
[2018-05-11] MEDS: BLOOD SUGAR DIAGNOSTIC STRIP TEST SCH ×4 (06:33→21:00)
[2018-05-11 07:56] LABS: CHLORIDE 94 mEq/L (98-107)
[2018-05-11] MEDS: DORZOLAM/TIMOLOL 2.23/0.68% OPHTH DROPS 10ML LEFTEYE SCH ×2 (08:35→17:17)
[2018-05-11] MEDS: PILOCARPINE HCL 2% OPHTH DROPS 15ML LEFTEYE SCH ×4 (08:35→22:50)
[2018-05-11] MEDS: AMLODIPINE 2.5MG TABLET PO SCH ×2 (08:35→21:30)
[2018-05-11] MEDS: FOLIC ACID/VITAMIN B COMP W-C TABLET PO SCH (08:35)
[2018-05-11] MEDS: DOCUSATE SODIUM 250MG CAPSULE PO SCH (08:36)
[2018-05-11] MEDS: LOSARTAN POTASSIUM 50 MG TABLET PO SCH ×2 (08:36→21:29)
[2018-05-11] MEDS: POTASSIUM CHLORIDE 20MEQ TABLET SR PO SCH (08:36)
[2018-05-11] MEDS: MAGNESIUM OXIDE 400MG TABLET PO SCH ×2 (08:36→17:17)
[2018-05-11] MEDS: CLONIDINE 0.1MG TABLET PO SCH ×2 (08:36→21:29)
[2018-05-11] MEDS: TAMSULOSIN HCL 0.4MG SR CAPSULE PO SCH (08:44)
[2018-05-11 09:03] LABS: BASOPHILS % 0.2 % (0.0-2.0); HEMATOCRIT. 35.1 % (42.0-52.0); HEMOGLOBIN. 12.5 g/dL (14.0-18.0); LYMPHOCYTES % 9.5 % (20.0-50.0); MEAN CORPUSCULAR HEMOGLOBIN 30.7 pg (28.0-32.0); MEAN PLATELET VOLUME 6.8 fl (7.4-10.4); MONOCYTES % 5.4 % (2.0-8.0); NEUTROPHILS % 84.9 % (40.0-76.0); PLATELET 174 x1000/uL (130-400); RED BLOOD CELL COUNT 4.09 mill/uL (4.7-6.1); RED CELL DISTRIBUTION WIDTH 14.5 % (11.6-14.6)
[2018-05-11] MEDS: LATANOPROST 0.005% OPHTH DROPS 2.5ML LEFTEYE SCH (22:50)
[2018-05-11] MEDS: INSULIN GLARGINE UD 100 UNITS/ML SYR SUBCUT SCH (22:50)
[2018-05-12] VITALS (7 sets, daily range): BP systolic 118–155; BP diastolic 70–102
[2018-05-12] MEDS: CLONIDINE 0.1MG TABLET PO PRN (00:53)
[2018-05-12] MEDS: DEXAMETHASONE 4MG/ML 1ML VIAL IV SCH ×5 (00:53→23:40)
[2018-05-12] MEDS: BLOOD SUGAR DIAGNOSTIC STRIP TEST SCH ×4 (06:54→21:00)
[2018-05-12] MEDS: INSULIN LISPRO 100 UNITS/ML SUBCUT SCH ×4 (07:50→23:39)
[2018-05-12] MEDS: CLONIDINE 0.1MG TABLET PO SCH ×2 (08:25→23:09)
[2018-05-12] MEDS: POTASSIUM CHLORIDE 20MEQ TABLET SR PO SCH (08:25)
[2018-05-12] MEDS: FOLIC ACID/VITAMIN B COMP W-C TABLET PO SCH (08:25)
[2018-05-12] MEDS: AMLODIPINE 2.5MG TABLET PO SCH ×2 (08:25→23:08)
[2018-05-12] MEDS: MAGNESIUM OXIDE 400MG TABLET PO SCH ×2 (08:25→17:23)
[2018-05-12] MEDS: DOCUSATE SODIUM 250MG CAPSULE PO SCH (08:26)
[2018-05-12] MEDS: TAMSULOSIN HCL 0.4MG SR CAPSULE PO SCH (08:26)
[2018-05-12] MEDS: LOSARTAN POTASSIUM 50 MG TABLET PO SCH ×2 (08:26→23:09)
[2018-05-12] MEDS: DORZOLAM/TIMOLOL 2.23/0.68% OPHTH DROPS 10ML LEFTEYE SCH ×2 (08:30→17:24)
[2018-05-12] MEDS: PILOCARPINE HCL 2% OPHTH DROPS 15ML LEFTEYE SCH ×4 (08:30→23:11)
[2018-05-12 09:10] LABS: BASOPHILS % 0.1 % (0.0-2.0); HEMATOCRIT. 34.6 % (42.0-52.0); HEMOGLOBIN. 12.4 g/dL (14.0-18.0); LYMPHOCYTES % 8.5 % (20.0-50.0); MEAN CORPUSCULAR HEMOGLOBIN 30.8 pg (28.0-32.0); MEAN CORPUSCULAR VOLUME 85.8 fL (80.0-94.0); MEAN PLATELET VOLUME 6.8 fl (7.4-10.4); MONOCYTES % 5.7 % (2.0-8.0); NEUTROPHILS % 85.7 % (40.0-76.0); PLATELET 174 x1000/uL (130-400); RED BLOOD CELL COUNT 4.03 mill/uL (4.7-6.1); RED CELL DISTRIBUTION WIDTH 14.5 % (11.6-14.6)
[2018-05-12 09:19] LABS: CHLORIDE 97 mEq/L (98-107)
[2018-05-12] MEDS: LATANOPROST 0.005% OPHTH DROPS 2.5ML LEFTEYE SCH (23:11)
[2018-05-12] MEDS: INSULIN GLARGINE UD 100 UNITS/ML SYR SUBCUT SCH (23:38)
[2018-05-13 01:00] VITALS: BP 145/75
[2018-05-13 04:00] VITALS: BP 152/83
[2018-05-13] MEDS: DEXAMETHASONE 4MG/ML 1ML VIAL IV SCH ×2 (06:18→12:34)
[2018-05-13] MEDS: BLOOD SUGAR DIAGNOSTIC STRIP TEST SCH ×2 (07:20→12:20)
[2018-05-13] MEDS: INSULIN LISPRO 100 UNITS/ML SUBCUT SCH ×2 (07:26→12:57)
[2018-05-13 07:28] LABS: HEMATOCRIT. 35.1 % (42.0-52.0); HEMOGLOBIN. 12.6 g/dL (14.0-18.0); LYMPHOCYTES % 9.5 % (20.0-50.0); MEAN CORPUSCULAR HEMOGLOBIN 30.6 pg (28.0-32.0); MEAN CORPUSCULAR VOLUME 85.3 fL (80.0-94.0); MEAN PLATELET VOLUME 6.6 fl (7.4-10.4); MONOCYTES % 5.3 % (2.0-8.0); NEUTROPHILS % 85.2 % (40.0-76.0); PLATELET 177 x1000/uL (130-400); RED BLOOD CELL COUNT 4.12 mill/uL (4.7-6.1); RED CELL DISTRIBUTION WIDTH 14.3 % (11.6-14.6)
[2018-05-13 07:32] LABS: CHLORIDE 94 mEq/L (98-107)
[2018-05-13 08:00] VITALS: BP 167/97
[2018-05-13] MEDS: DORZOLAM/TIMOLOL 2.23/0.68% OPHTH DROPS 10ML LEFTEYE SCH (09:00)
[2018-05-13] MEDS: DOCUSATE SODIUM 250MG CAPSULE PO SCH (09:27)
[2018-05-13] MEDS: MAGNESIUM OXIDE 400MG TABLET PO SCH (09:27)
[2018-05-13] MEDS: FOLIC ACID/VITAMIN B COMP W-C TABLET PO SCH (09:27)
[2018-05-13] MEDS: TAMSULOSIN HCL 0.4MG SR CAPSULE PO SCH (09:28)
[2018-05-13] MEDS: LOSARTAN POTASSIUM 50 MG TABLET PO SCH (09:28)
[2018-05-13] MEDS: POTASSIUM CHLORIDE 20MEQ TABLET SR PO SCH (09:28)
[2018-05-13] MEDS: CLONIDINE 0.1MG TABLET PO SCH (09:28)
[2018-05-13] MEDS: AMLODIPINE 2.5MG TABLET PO SCH (09:28)
[2018-05-13] MEDS: PILOCARPINE HCL 2% OPHTH DROPS 15ML LEFTEYE SCH ×2 (09:29→13:00)
[2018-05-13 12:00] VITALS: BP 82/58
[2018-05-13 16:00] VITALS: BP 123/79
== END 2018-05-13 16:41 | disposition short-term general hospital (02) | DRG 471 ==
LOC: ER 01:27 → 3WST 02:52 → EDBEDREQTM 02:53 → EDBEDREQ 02:53 → EDBEDREQSVC 02:53 → ENRESERV 03:41 → MICUSO 05-04 12:20 → 6EST 05-06 23:48
PROVIDERS: ADMIT Internal Medicine Nephrology; ATTEND Internal Medicine Nephrology
PROC: 0RB30ZZ Excision of Cervical Vertebral Disc, Open Approach (ICD-10-PCS; 2018-05-04)
PROC: 0RG10A0 Fusion of Cervical Vertebral Joint with Interbody Fusion Device, Anterior Approach, Anterior Column, Open Approach (ICD-10-PCS; principal; 2018-05-04 11:00)
DX: M48.02 Spinal stenosis, cervical region (principal); E43 Unspecified severe protein-calorie malnutrition; G82.50 Quadriplegia, unspecified; E87.1 Hypo-osmolality and hyponatremia; G95.89 Other specified diseases of spinal cord; Z68.1 Body mass index [BMI] 19.9 or less, adult; N39.0 Urinary tract infection, site not specified; G90.8 Other disorders of autonomic nervous system; E86.0 Dehydration; E87.6 Hypokalemia; E11.319 Type 2 diabetes mellitus with unspecified diabetic retinopathy without macular edema; I10 Essential (primary) hypertension; H40.9 Unspecified glaucoma; E87.8 Other disorders of electrolyte and fluid balance, not elsewhere classified; M48.061 Spinal stenosis, lumbar region without neurogenic claudication; S14.109A Unspecified injury at unspecified level of cervical spinal cord, initial encounter; M47.897 Other spondylosis, lumbosacral region; R00.0 Tachycardia, unspecified; R53.81 Other malaise; R74.0 Nonspecific elevation of levels of transaminase and lactic acid dehydrogenase [LDH]; R79.89 Other specified abnormal findings of blood chemistry; D64.9 Anemia, unspecified; E11.649 Type 2 diabetes mellitus with hypoglycemia without coma; H54.62 Unqualified visual loss, left eye, normal vision right eye; E78.00 Pure hypercholesterolemia, unspecified; E78.5 Hyperlipidemia, unspecified; E83.42 Hypomagnesemia; H40.10X0 Unspecified open-angle glaucoma, stage unspecified; H54.40 Blindness, one eye, unspecified eye; G31.9 Degenerative disease of nervous system, unspecified; I45.9 Conduction disorder, unspecified; I95.1 Orthostatic hypotension; W18.39XA Other fall on same level, initial encounter; M51.17 Intervertebral disc disorders with radiculopathy, lumbosacral region; M47.22 Other spondylosis with radiculopathy, cervical region; M51.37 Other intervertebral disc degeneration, lumbosacral region; N28.1 Cyst of kidney, acquired; N40.0 Benign prostatic hyperplasia without lower urinary tract symptoms; Z79.4 Long term (current) use of insulin; Z79.899 Other long term (current) drug therapy; Z82.49 Family history of ischemic heart disease and other diseases of the circulatory system; Z90.01 Acquired absence of eye; Z98.1 Arthrodesis status; Y93.89 Activity, other specified; Y92.038 Other place in apartment as the place of occurrence of the external cause; Y99.8 Other external cause status
CPT/HCPCS: 36415; 70450; 70551; 71045; 72040; 72141; 72146; 72148; 76700; 80048; 80053; 80076; 81003; 82140; 82550; 82553; 82962; 83605; 83735; 83930; 83935; 84100; 84134; 84153; 84484; 85025; 85610; 86705; 86709; 86803; 87340; 87493; 88304; 88311; 92523; 92610; 93005; 93306; 93880; 93970; 96360; 96361; 97110; 97116; 97162; 97164; 97166; 97530; 99291; A4216; G0482; J0330; J0690; J1100; J1170; J1650; J1815; J2250; J2270; J2310; J2704; J2710; J3010; J3475; J3480; J3490; J7030; J7050; G0103

== ENCOUNTER 2019-01-10 18:37 | Inpatient (IN) | payer MEDICARE, MEDICAID ==
[~2019-01-10] VITALS: Ht 177.8 cm; Wt 64.4 kg
[~2019-01-10 18:37] MED LIST changes: +CEPH500T PO; +DORZ10DR9 LEFTEYE; +EPINEPHRINE 0.1MG/ML (1:10,000) 10ML SYR ONE; +ETOMIDATE 2MG/ML 10ML VIAL IV ONE; +LISI2.5T47 PO; +METF-414 MT; -METF500T6 MT; +NEO/3.5O RIGHTEYE; +ONDA4TAB8 PO; +SUCCINYLCHOLINE CHLORIDE 200MG/10ML IV ONE; +XALAO LEFTEYE
[2019-01-10] MEDS ORDERED: NOREPINEPHRINE 4MG/250ML PMX 250 ML IV ONE ×2 (19:04→23:00)
[2019-01-10] MEDS ORDERED: LORAZEPAM 2MG/ML CPJ ONE (19:10)
[2019-01-10] MEDS ORDERED: FENTANYL CITRATE/PF 1,000 MCG in SODIUM CHLORIDE 0.9% 80 ML IV STA (19:19)
[2019-01-10] MEDS ORDERED: CEFTRIAXONE 1 G PREMIX 50 ML IV ONE (19:30)
[2019-01-10] MEDS ORDERED: NOREPINEPHRINE 4 MG in DEXT 5% WATER 246 ML IV ONE (19:30)
[2019-01-10] MEDS ORDERED: MIDAZOLAM HCL 50 MG in DEXTROSE 5% WATER 40 ML IV ONE (19:30)
[2019-01-10] MEDS ORDERED: SODIUM CHLORIDE 0.9% 1000ML BAG (SEPSIS BOLUS) IV ONE (19:30)
[2019-01-10] MEDS ORDERED: LORAZEPAM 2MG/ML CPJ IV ONE (19:30)
[2019-01-10] MEDS ORDERED: MIDAZOLAM HCL 50 MG in DEXTROSE 5% WATER 40 ML IV PRN (19:45)
[2019-01-10] MEDS ORDERED: FENTANYL CITRATE/PF 1,000 MCG in SODIUM CHLORIDE 0.9% 80 ML IV PRN (19:45)
[2019-01-10 20:06] LABS: BASOPHILS % 0.1 % (0.0-2.0); EOSINOPHILS % 0.2 % (0.0-5.0); HEMATOCRIT. 24.8 % (42.0-52.0); HEMOGLOBIN. 7.9 g/dL (14.0-18.0); MEAN CORPUSCULAR HEMOGLOBIN 25.3 pg (28.0-32.0); MEAN CORPUSCULAR VOLUME 79.4 fL (80.0-94.0); MEAN PLATELET VOLUME 6.8 fl (7.4-10.4); MONOCYTES % 6.2 % (2.0-8.0); NEUTROPHILS % 70.5 % (40.0-76.0); PLATELET 98 x1000/uL (130-400); RED BLOOD CELL COUNT 3.13 mill/uL (4.7-6.1); RED CELL DISTRIBUTION WIDTH 18.7 % (11.6-14.6)
[2019-01-10 20:12] LABS: CHLORIDE 101 mEq/L (98-107)
[2019-01-10 20:14] LABS: INR 1.2; PROTHROMBIN TIME 12.1 sec (9.6-11.0)
[2019-01-10 20:18] LABS: ETHANOL BLOOD < 10 mg/dL
[2019-01-10 20:22] LABS: BG CARBOXYHEMOGLOBIN 0.1 % (0.5-1.5); BG DEOXYHEMOGLOBIN 1.7 % (0.0-5.0); BG FRACTION INSPIRED OXYGEN 100; BG HCO3 ACT 12.1 mmol/L (22.0-26.0); BG METHEMOGLOBIN 0.3 % (0.0-1.5); BG OXYGEN SATURATION 98.3 % (92.0-98.5); BG OXYHEMOGLOBIN 97.9 % (94.0-97.0); BG PCO2 25.1 mmHg (35.0-45.0); BG PH 7.302 (7.350-7.450); BG PO2 370.4 mmHg (75.0-100.0); BG SAMPLE SITE LEFT RADIAL; BG TIDAL VOLUME(mL) 500 mL; BG TOTAL HEMOGLOBIN 7.2 g/dL (12.0-18.0); BG VENT MODE VENT - A/C; BG VENT RATE 12 set
[2019-01-10 21:01] LABS: CLARITY URINE CLOUDY (CLEAR); COLOR URINE YELLOW (YELLOW); KETONES URINE NEGATIVE (NEGATIVE); LEUKOCYTE ESTERASE URINE 2+ (NEGATIVE); NITRITE URINE NEGATIVE (NEGATIVE); OCCULT BLOOD URINE 2+ (NEGATIVE); PH URINE 5.5 (4.5-8.0); PROTEIN URINE 2+ (NEGATIVE); SPECIFIC GRAVITY URINE 1.012 (1.005-1.030); UROBILINOGEN URINE 0.2 E.U./dL (0.2-1.0)
[2019-01-10 21:19] LABS: *AMPHETAMINES SCREEN URINE NEGATIVE (NEGATIVE); *BARBITURATES SCREEN URINE NEGATIVE (NEGATIVE); *BENZODIAZEPINES SCREEN URINE NEGATIVE (NEGATIVE); *COCAINE SCREEN URINE NEGATIVE (NEGATIVE); METHADONE URINE SCREEN NEGATIVE (NEGATIVE); OPIATES URINE SCREEN NEGATIVE (NEGATIVE); PHENCYCLIDINE URINE SCREEN NEGATIVE (NEGATIVE)
[2019-01-10 21:20] LABS: CANNABINOID URINE SCREEN NEGATIVE (NEGATIVE)
[2019-01-10] MEDS ORDERED: NOREPINEPHRINE 4 MG in DEXT 5% WATER 246 ML IV PRN (22:45)
[2019-01-10] MEDS ORDERED: NOREPINEPHRINE 4MG/250ML PMX 250 ML IV PRN (23:15)
[2019-01-10] MEDS ORDERED: ASPIRIN 300MG SUPP PR ONE (23:45)
[2019-01-10] MEDS ORDERED: SODIUM CHLORIDE 0.9% 1,000 ML IV NR (23:47)
[2019-01-11] VITALS (106 sets, daily range): BP systolic 42–184; BP diastolic 17–128
[2019-01-11] MEDS ORDERED: ENOXAPARIN 40MG/0.4ML SYR SUBCUT SCH (00:45)
[2019-01-11] MEDS ORDERED: ONDANSETRON HCL 4MG/2ML INJ IV PRN (00:45)
[2019-01-11] MEDS ORDERED: IPRATROPIUM/ALBUTEROL 0.5-3(2.5)MG/3ML NEB INH PRN (00:45)
[2019-01-11] MEDS ORDERED: ACETAMINOPHEN 650MG SUPP PR PRN (00:45)
[2019-01-11] MEDS ORDERED: LORAZEPAM 2MG/ML CPJ IV PRN (00:45)
[2019-01-11] MEDS ORDERED: PROPOFOL 10MG/ML 100ML 100 ML IV PRN (01:45)
[2019-01-11] MEDS ORDERED: DEXTROSE 50% WATER 50ML SYRINGE IV PRN (01:45)
[2019-01-11] MEDS ORDERED: EPINEPHRINE 0.1MG/ML (1:10,000) 10ML SYR ONE ×2 (02:00→11:30)
[2019-01-11] MEDS ORDERED: FENTANYL CITRATE/PF 500 MCG in SODIUM CHLORIDE 0.9% 40 ML IV PRN (02:00)
[2019-01-11] MEDS ORDERED: DEXTROSE 50% WATER 50ML SYRINGE IV ONE (02:00)
[2019-01-11] MEDS: SODIUM CHLORIDE 0.9% 1,000 ML IV SCH ×2 (02:11→20:53)
[2019-01-11] MEDS: PANTOPRAZOLE SODIUM 40 MG/VIAL IV SCH ×2 (02:11→08:44)
[2019-01-11] MEDS: NOREPINEPHRINE 16 MG in DEXT 5% WATER 234 ML IV PRN ×2 (02:12→09:25)
[2019-01-11] MEDS: EPINEPHRINE 1 MG in SODIUM CHLORIDE 0.9% 249 ML IV PRN ×3 (03:35→14:49)
[2019-01-11] MEDS ORDERED: LINA5TAB MT (04:17)
[2019-01-11] MEDS ORDERED: VIT1TABL PO (04:18)
[2019-01-11] MEDS ORDERED: LACT1CAP58 MT (04:21)
[2019-01-11] MEDS ORDERED: ASCO-339 MT (04:21)
[2019-01-11] MEDS ORDERED: GABA-531 PO (04:22)
[2019-01-11] MEDS ORDERED: TAMS0.4C31 MT (04:23)
[2019-01-11] MEDS ORDERED: FERR325T6 MT (04:25)
[2019-01-11] MEDS ORDERED: DORZ10DR17 OP (04:25)
[2019-01-11] MEDS ORDERED: HYDR12.54 PO (04:26)
[2019-01-11] MEDS ORDERED: DORZ1DRO7 OP (04:28)
[2019-01-11] MEDS ORDERED: INSU100I22 SQ (04:28)
[2019-01-11] MEDS: IPRATROPIUM/ALBUTEROL 0.5-3(2.5)MG/3ML NEB INH SCH ×5 (04:36→21:00)
[2019-01-11 05:53] LABS: HEMATOCRIT. 27.8 % (42.0-52.0); HEMOGLOBIN. 8.7 g/dL (14.0-18.0); MEAN CORPUSCULAR HEMOGLOBIN 25.4 pg (28.0-32.0); MEAN CORPUSCULAR VOLUME 81.5 fL (80.0-94.0); MEAN PLATELET VOLUME 7.6 fl (7.4-10.4); PLATELET 130 x1000/uL (130-400); RED BLOOD CELL COUNT 3.41 mill/uL (4.7-6.1); RED CELL DISTRIBUTION WIDTH 18.9 % (11.6-14.6)
[2019-01-11] MEDS: BLOOD SUGAR DIAGNOSTIC STRIP TEST SCH ×4 (06:15→20:51)
[2019-01-11 06:18] LABS: CHLORIDE 99 mEq/L (98-107)
[2019-01-11] MEDS: INSULIN LISPRO 100 UNITS/ML SUBCUT SCH ×4 (06:21→20:54)
[2019-01-11 06:43] LABS: CREATINE KINASE 235 IU/L (39-308)
[2019-01-11 07:07] LABS: PLATELET ESTIMATE NORMAL
[2019-01-11 08:43] LABS: BG BASE EXCESS -9.8 mmol/L (-2.0-2.0); BG CARBOXYHEMOGLOBIN 0.3 % (0.5-1.5); BG DEOXYHEMOGLOBIN 2.5 % (0.0-5.0); BG FRACTION INSPIRED OXYGEN 40; BG HCO3 ACT 13.4 mmol/L (22.0-26.0); BG METHEMOGLOBIN 0.3 % (0.0-1.5); BG OXYGEN SATURATION 97.5 % (92.0-98.5); BG OXYHEMOGLOBIN 96.9 % (94.0-97.0); BG PCO2 21.4 mmHg (35.0-45.0); BG PH 7.415 (7.350-7.450); BG PO2 153.5 mmHg (75.0-100.0); BG SAMPLE SITE RIGHT BRACHIAL; BG TIDAL VOLUME(mL) 500 mL; BG TOTAL HEMOGLOBIN 8.5 g/dL (12.0-18.0); BG VENT MODE VENT - A/C; BG VENT RATE 12 set
[2019-01-11] MEDS ORDERED: ENOXAPARIN 30MG/0.3ML SYR SUBCUT SCH ×2 (09:00)
[2019-01-11] MEDS ORDERED: PHENYLEPHRINE 20 MG in DEXT 5% WATER 498 ML IV PRN (09:45)
[2019-01-11] MEDS ORDERED: CEFEPIME 1,000 MG in DEXTROSE 5% WATER 50 ML IV SCH (10:15)
[2019-01-11] MEDS ORDERED: SODIUM BICARBONATE 8.4% 1 MEQ/ML 50ML SYR IV ONE (11:30)
[2019-01-11] MEDS ORDERED: VANCOMYCIN 1500MG in DEXTROSE 5% WATER 250ML IV SCH (12:00)
[2019-01-11] MEDS ORDERED: PHENYLEPHRINE 40 MG in DEXT 5% WATER 496 ML IV PRN (12:05)
[2019-01-11] MEDS ORDERED: VASOPRESSIN 10 UNIT in SODIUM CHLORIDE 0.9% 99.5 ML IV PRN (12:15)
[2019-01-11 12:28] LABS: T4 FREE 1.42 ng/dL (0.76-1.46)
[2019-01-11 12:30] LABS: BG BASE EXCESS -18.1 mmol/L (-2.0-2.0); BG CARBOXYHEMOGLOBIN 0.3 % (0.5-1.5); BG FRACTION INSPIRED OXYGEN 100; BG HCO3 ACT 7.3 mmol/L (22.0-26.0); BG METHEMOGLOBIN 0.3 % (0.0-1.5); BG OXYHEMOGLOBIN 97.4 % (94.0-97.0); BG SAMPLE SITE RIGHT RADIAL; BG TIDAL VOLUME(mL) 500 mL; BG TOTAL HEMOGLOBIN 8.1 g/dL (12.0-18.0); BG VENT MODE VENT - A/C; BG VENT RATE 18 set
[2019-01-11 12:45] LABS: VITAMIN B12 SERUM 1869 pg/mL (211-911)
[2019-01-11 12:49] LABS: FOLIC ACID (FOLATE) SERUM > 20.00 ng/mL (>5.38)
[2019-01-11] MEDS: PHENYLEPHRINE 40 MG in DEXTROSE 5% WATER 250 ML IV PRN ×3 (12:51→22:19)
[2019-01-11] MEDS ORDERED: SODIUM BICARBONATE 8.4% 1 MEQ/ML 50ML SYR IV SCH (13:00)
[2019-01-11] MEDS: CEFEPIME 2,000 MG in DEXT 5% WATER 100 ML IV SCH (13:02)
[2019-01-11 15:07] LABS: BG BASE EXCESS -12.5 mmol/L (-2.0-2.0); BG CARBOXYHEMOGLOBIN 0.3 % (0.5-1.5); BG DEOXYHEMOGLOBIN 3.8 % (0.0-5.0); BG FRACTION INSPIRED OXYGEN 40; BG HCO3 ACT 11.4 mmol/L (22.0-26.0); BG OXYGEN SATURATION 96.2 % (92.0-98.5); BG OXYHEMOGLOBIN 95.9 % (94.0-97.0); BG PCO2 20.4 mmHg (35.0-45.0); BG PH 7.364 (7.350-7.450); BG SAMPLE SITE RIGHT BRACHIAL; BG TIDAL VOLUME(mL) 500 mL; BG TOTAL HEMOGLOBIN 8.3 g/dL (12.0-18.0); BG VENT MODE VENT - A/C; BG VENT RATE 20 set
[2019-01-11] MEDS: METRONIDAZOLE 500 MG PREMIX 100 ML IV SCH ×2 (16:07→21:07)
[2019-01-11 16:29] LABS: CREATINE KINASE MB FRACTION 4.2 ng/mL (0.5-3.6)
[2019-01-12] VITALS (63 sets, daily range): BP systolic 64–194; BP diastolic 28–109
[2019-01-12] MEDS: IPRATROPIUM/ALBUTEROL 0.5-3(2.5)MG/3ML NEB INH SCH ×4 (00:31→11:16)
[2019-01-12] MEDS ORDERED: PHENYLEPHRINE 80 MG in DEXT 5% WATER 492 ML IV PRN (01:29)
[2019-01-12] MEDS: NOREPINEPHRINE 16 MG in DEXT 5% WATER 234 ML IV PRN (02:13)
[2019-01-12 05:52] LABS: HEMATOCRIT. 28.2 % (42.0-52.0); HEMOGLOBIN. 9.1 g/dL (14.0-18.0); MEAN CORPUSCULAR HEMOGLOBIN 24.7 pg (28.0-32.0); MEAN CORPUSCULAR VOLUME 76.5 fL (80.0-94.0); PLATELET 62 x1000/uL (130-400); RED BLOOD CELL COUNT 3.68 mill/uL (4.7-6.1); RED CELL DISTRIBUTION WIDTH 18.9 % (11.6-14.6)
[2019-01-12] MEDS: METRONIDAZOLE 500 MG PREMIX 100 ML IV SCH (06:16)
[2019-01-12] MEDS: INSULIN LISPRO 100 UNITS/ML SUBCUT SCH (06:16)
[2019-01-12] MEDS: BLOOD SUGAR DIAGNOSTIC STRIP TEST SCH (06:47)
[2019-01-12 06:57] LABS: PLATELET ESTIMATE DECREASED
[2019-01-12 08:09] LABS: BG BASE EXCESS -15.6 mmol/L (-2.0-2.0); BG CARBOXYHEMOGLOBIN 0.3 % (0.5-1.5); BG DEOXYHEMOGLOBIN 2.8 % (0.0-5.0); BG FRACTION INSPIRED OXYGEN 40; BG HCO3 ACT 8.3 mmol/L (22.0-26.0); BG METHEMOGLOBIN 0.3 % (0.0-1.5); BG OXYGEN SATURATION 97.2 % (92.0-98.5); BG OXYHEMOGLOBIN 96.6 % (94.0-97.0); BG PCO2 15.8 mmHg (35.0-45.0); BG PH 7.337 (7.350-7.450); BG PO2 138.1 mmHg (75.0-100.0); BG SAMPLE SITE RIGHT BRACHIAL; BG TIDAL VOLUME(mL) 500 mL; BG TOTAL HEMOGLOBIN 8.7 g/dL (12.0-18.0); BG VENT MODE VENT - A/C; BG VENT RATE 24 set
[2019-01-12] MEDS: CEFEPIME 2,000 MG in DEXT 5% WATER 100 ML IV SCH (08:18)
[2019-01-12] MEDS: PANTOPRAZOLE SODIUM 40 MG/VIAL IV SCH (08:18)
[2019-01-12] MEDS ORDERED: LORAZEPAM 2MG/ML CPJ IM PRN (09:00)
[2019-01-12] MEDS ORDERED: MORPHINE SULFATE 250 MG in DEXT 5% WATER 240 ML IV PRN (09:00)
[2019-01-12] MEDS ORDERED: MEROPENEM 1,000 MG in SODIUM CHLORIDE 0.9% 100 ML IV SCH (09:45)
[2019-01-12] MEDS ORDERED: SODIUM BICARBONATE 100 MEQ in SODIUM CHLORIDE 0.45% 1,000 ML IV SCH (10:00)
[2019-01-12] MEDS ORDERED: MEROPENEM 1000MG in NORMAL SALINE 100ML IV SCH (11:00)
== END 2019-01-12 18:30 | disposition expired | DRG 871 ==
LOC: ER 18:37 → EDBEDREQSVC 20:44 → MICUSO 23:36 → EDBEDREQ 23:38 → EDBEDREQTM 23:38 → ENRESERV 23:56
PROVIDERS: ADMIT Internal Medicine; ATTEND Internal Medicine
PROC: 5A1945Z Respiratory Ventilation, 24-96 Consecutive Hours (ICD-10-PCS; principal; 2019-01-10)
PROC: 0BH17EZ Insertion of Endotracheal Airway into Trachea, Via Natural or Artificial Opening (ICD-10-PCS; 2019-01-10)
PROC: 06HY33Z Insertion of Infusion Device into Lower Vein, Percutaneous Approach (ICD-10-PCS; 2019-01-10)
PROC: 5A12012 Performance of Cardiac Output, Single, Manual (ICD-10-PCS; 2019-01-11)
PROC: 5A12012 Performance of Cardiac Output, Single, Manual (ICD-10-PCS; 2019-01-11)
PROC: 4A00X4Z Measurement of Central Nervous Electrical Activity, External Approach (ICD-10-PCS; 2019-01-11)
DX: A41.50 Gram-negative sepsis, unspecified (principal); R65.21 Severe sepsis with septic shock; G92 Toxic encephalopathy; J96.00 Acute respiratory failure, unspecified whether with hypoxia or hypercapnia; N17.0 Acute kidney failure with tubular necrosis; K72.00 Acute and subacute hepatic failure without coma; N39.0 Urinary tract infection, site not specified; E87.1 Hypo-osmolality and hyponatremia; E87.2 Acidosis; I13.0 Hypertensive heart and chronic kidney disease with heart failure and stage 1 through stage 4 chronic kidney disease, or unspecified chronic kidney disease; M62.82 Rhabdomyolysis; R18.8 Other ascites; I50.22 Chronic systolic (congestive) heart failure; S05.71XA Avulsion of right eye, initial encounter; Z66 Do not resuscitate; I46.9 Cardiac arrest, cause unspecified; D50.9 Iron deficiency anemia, unspecified; D69.6 Thrombocytopenia, unspecified; E11.22 Type 2 diabetes mellitus with diabetic chronic kidney disease; E11.65 Type 2 diabetes mellitus with hyperglycemia; E78.00 Pure hypercholesterolemia, unspecified; E78.5 Hyperlipidemia, unspecified; X58.XXXA Exposure to other specified factors, initial encounter; L89.159 Pressure ulcer of sacral region, unspecified stage; H40.9 Unspecified glaucoma; H54.8 Legal blindness, as defined in USA; N18.9 Chronic kidney disease, unspecified; Z82.41 Family history of sudden cardiac death; Z79.82 Long term (current) use of aspirin; Z79.84 Long term (current) use of oral hypoglycemic drugs; Z79.899 Other long term (current) drug therapy; Y93.89 Activity, other specified; Y92.89 Other specified places as the place of occurrence of the external cause; Y99.8 Other external cause status
CPT/HCPCS: 31500; 36415; 36556; 36600; 51702; 71045; 76700; 80048; 80061; 80076; 80202; 80305; 80320; 82140; 82375; 82550; 82553; 82607; 82746; 82805; 82962; 83036; 83605; 83880; 84134; 84145; 84439; 84443; 84481; 84484; 86850; 86900; 87070; 87077; 87186; 92950; 93005; 93306; 93970; 96365; 96368; 96375; 99291; C9113; J0330; J0692; J0696; J1815; J2060; J2185; J2250; J2274; J2370; J2704; J3010; J3370; J3490; J7030; J7050; J7060; J7620; G0480